=== PATIENT | female | born 1980 | race Caucasian/White ===

== ENCOUNTER 2017-05-09 11:34 | Emergency (ER) | payer MEDICAID ==
[~2017-05-09] VITALS: Ht 142.2 cm; Wt 52.6 kg
[2017-05-09 12:00] VITALS: BP 107/64
--- NOTE | 2017-05-09 13:25 | NUR ---
[facility] PT AMBULATED TO OF1
--- NOTE | 2017-05-09 13:25 | NUR ---
PATIENT AMB. TO OF#1
--- NOTE | 2017-05-09 13:26 | NUR ---
PATIENT PRESENTS TO ED WITH c/o left ear pain x 2 days denies drainage, denies injury ---last night submandible swelling, firm nodule--throat pain ; worse today full clear speech, no drooling noted hx----singleton's palsy 2001 rx----none; DENIES N/V/D; SKIN IS PINK/WARM/DRY; AAOX4 WITH EVEN AND STEADY GAIT; LUNGS CLEAR BL; HR EVEN AND REGULAR; PT DENIES ANY FEVER, CP, SOB, OR COUGH AT THIS TIME; PATIENT STATES PAIN OF 8/10 AT THIS TIME; VSS; PATIENT POSITIONED FOR COMFORT; PT AMBULATED TO OF. ER MD MADE AWARE OF PT STATUS.
--- NOTE | 2017-05-09 13:47 | NUR ---
DR ARCHIBALD EVALUATING AAO PT
[2017-05-09 14:56] LABS: BASOPHILS # (AUTO) 0.2 K/uL (0.00-0.22); EOSINOPHILS # (AUTO) 0.1 K/uL (0-0.4); EOSINOPHILS % (AUTO) 1.1 % (0.0-4.0); HEMATOCRIT 40.4 % (36-48); HEMOGLOBIN 13.5 g/dL (12.0-16.0); LYMPHOCYTES # (AUTO) 2.2 K/uL (2.5-16.5); LYMPHOCYTES % (AUTO) 26.7 % (20.5-51.1); MEAN CORPUSCULAR HEMOGLOBIN 29 pg (27-31); MEAN CORPUSCULAR HGB CONC 34 g/dL (33-37); MEAN CORPUSCULAR VOLUME 87 fL (80-94); MONOCYTES # (AUTO) 0.6 K/uL (0.8-1.0); MONOCYTES % (AUTO) 6.9 % (1.7-9.3); NEUTROPHILS # (AUTO) 5.3 K/uL (1.8-7.7); NEUTROPHILS % (AUTO) 63.3 % (42.2-75.2); PLATELET COUNT (AUTO) 267 K/uL (140-450); RED BLOOD CELL COUNT(AUTO) 4.65 MIL/uL (4.20-5.40); RED CELL DISTRIBUTION WIDTH 12.9 % (11.6-13.7); WHITE BLOOD COUNT (AUTO) 8.4 K/uL (4.8-10.8)
[2017-05-09 15:10] LABS: ANION GAP 15.3 (8-16); CARBON DIOXIDE 24.6 mmol/L (21-32); CREATININE 0.8 mg/dL (0.6-1.3); POTASSIUM 3.9 mmol/L (3.5-5.1)
[2017-05-09 15:17] LABS: ALBUMIN 3.8 g/dL (3.4-5.0); TOTAL BILIRUBIN 0.8 mg/dL (0.0-1.0)
[2017-05-09 15:48] VITALS: BP 125/70
== END 2017-05-09 15:48 | disposition home or self-care (01) ==
LOC: MED 11:34
DX: N39.0 Urinary tract infection, site not specified (principal); R59.9 Enlarged lymph nodes, unspecified; E11.9 Type 2 diabetes mellitus without complications
CPT/HCPCS: 36415; 80053; 81002; 81025; 85025; 99284

== ENCOUNTER 2017-06-18 00:35 | Emergency (ER) | payer MEDICAID ==
[~2017-06-18] VITALS: Ht 149.9 cm; Wt 54.0 kg
[2017-06-18 00:45] VITALS: BP 130/75
--- NOTE | 2017-06-18 00:46 | NUR ---
PT TAKEN TO BED 1
--- NOTE | 2017-06-18 01:01 | NUR ---
36Y/ F PT.PRESENST TO ED WITH C/O PALPITATIONS WITH CHEST PAIN X3 DAYS. DENIES MED HX. AAO X4, AMBULATORY WITH STEDAY GAIT. RESPIRATIONS ROOM AIR, EVEN AND UNALBORED. C/O PALPITAIONS WITH CP 11/12. VSS, EKG SR, ER MD MADE AWARE OF PT. STATUS.
--- NOTE | 2017-06-18 01:16 | NUR ---
Dr. Mcnally evaluating patient.
[2017-06-18 01:45] LABS: BASOPHILS # (AUTO) 0.3 K/uL (0.00-0.22); BASOPHILS % (AUTO) 3.4 % (0.0-2.0); EOSINOPHILS # (AUTO) 0.2 K/uL (0-0.4); HEMATOCRIT 38.3 % (36-48); HEMOGLOBIN 12.9 g/dL (12.0-16.0); LYMPHOCYTES % (AUTO) 32.8 % (20.5-51.1); MEAN CORPUSCULAR HEMOGLOBIN 29 pg (27-31); MEAN CORPUSCULAR HGB CONC 34 g/dL (33-37); MEAN CORPUSCULAR VOLUME 87 fL (80-94); MONOCYTES # (AUTO) 0.6 K/uL (0.8-1.0); MONOCYTES % (AUTO) 6.5 % (1.7-9.3); NEUTROPHILS % (AUTO) 55.3 % (42.2-75.2); PLATELET COUNT (AUTO) 305 K/uL (140-450); RED CELL DISTRIBUTION WIDTH 12.9 % (11.6-13.7); WHITE BLOOD COUNT (AUTO) 9.1 K/uL (4.8-10.8)
[2017-06-18 01:59] LABS: CARBON DIOXIDE 26.7 mmol/L (21-32); CREATININE 0.9 mg/dL (0.6-1.3); POTASSIUM 3.7 mmol/L (3.5-5.1)
[2017-06-18 02:02] LABS: ALBUMIN 3.7 g/dL (3.4-5.0); TOTAL BILIRUBIN 0.4 mg/dL (0.0-1.0)
--- NOTE | 2017-06-18 02:21 | NUR ---
Patient discharged with v/s stable. Written and verbal after care instructions given and explained. Patient verbalized understanding. Ambulatory with steady gait. All questions addressed prior to discharge. Advised to follow up with PMD.
[2017-06-18 02:22] VITALS: BP 122/55
== END 2017-06-18 02:21 | disposition home or self-care (01) ==
LOC: MED 00:35
DX: R00.2 Palpitations (principal); R07.9 Chest pain, unspecified
CPT/HCPCS: 36415; 71045; 80053; 81002; 81025; 83690; 83880; 84484; 85025; 93005; 99285; Q0092